=== PATIENT | female | born 1935 | race African-American/Black ===

== ENCOUNTER 2020-09-27 10:54 | Emergency (ER) | payer MEDICARE, OTHER ==
[2020-09-27 11:36] LABS: #Monocytes 1.1 10x3/uL (0.0-1.1); #Neutrophils 11.6 10x3/uL (1.5-8.4); %Basophils 0.1 % (0.0-2.0); %Lymphocytes 5.6 % (18.0-47.0); Hemoglobin 13.1 g/dL (12.0-15.5); Mean Corpuscular HGB CONC 31.2 g/dL (32.0-36.0); Mean Corpuscular Hemoglobin 23.4 pg (27.0-33.0); Mean Corpuscular Volume 74.9 fl (81.6-98.3); Mean Platelet Volume 9.8 fl (7.4-10.4); Platelet Count 295 10x3/uL (150-450); RBC Distribution Width 15.9 % (11.5-14.5); Red Blood Cell (RBC) Count 5.61 10x6/uL (3.90-5.03); White Blood Cell (WBC) Count 13.4 10x3/uL (3.5-10.5)
[2020-09-27 12:07] LABS: ALT (SGPT) 13 U/L (8-55); Albumin 3.8 g/dL (3.4-4.8); Alkaline Phosphatase 80 U/L (40-110); Anion Gap 24 mmol/L (10-20); BUN (Urea Nitrogen) 81 mg/dL (9.8-20.1); Bilirubin, Total 0.6 mg/dL (0.2-1.2); Calc. Creatinine Clearance 0 mL/min (70-130); Calcium 9.2 mg/dL (7.8-10.44); Carbon Dioxide 13 mmol/L (23-31); Chloride 104 mmol/L (98-107); Globulin 3.1 g/dL (2.4-3.5); Glucose 131 mg/dL (83-110); Lipase 16 U/L (8-78); Potassium 4.4 mmol/L (3.5-5.1); Protein, Total 6.9 g/dL (5.8-8.1); Sodium 137 mmol/L (136-145)
[2020-09-27] MEDS ORDERED: Piperacillin/Tazobactam 4.5 GM VIAL ONE (12:07)
[2020-09-27 12:18] LABS: AST (SGOT) 26 U/L (5-34)
[2020-09-27 12:26] LABS: CKMB 5.7 ng/mL (0-6.6)
[2020-09-27 14:21] LABS: Bilirubin 3+ (Negative); Blood, Urine 10 (Negative); Clarity Clear (Clear); Glucose, Urine (Dipstick) Normal (Negative); Ketone, Urine 15 mg/dL (Negative); Leukocyte 25 (Negative); Nitrite Negative (Negative); Protein, Urine (Dipstick) 30 mg/dl (Neg-Trace)
[2020-09-27 14:30] LABS: Bacteria/HPF None Seen HPF (None Seen); RBC/HPF None Seen HPF (0-3); Squamous Epithelial 0-3 HPF (0-3); WBC/HPF 0-3 HPF (0-3)
[2020-09-27 14:39] LABS: SARS-CoV-2 NAA Rapid Test Not Detected (NotDetected)
[2020-09-27] MEDS ORDERED: Ondansetron PF 4 MG/2 ML Vial ONE (18:31)
[2020-09-27] MEDS ORDERED: Morphine 4 MG/ML VIAL ONE ×2 (18:31→19:14)
[2020-09-27] MEDS ORDERED: Lorazepam 2 MG/ML VIAL ONE (19:14)
== END 2020-09-27 20:45 | disposition home or self-care (01) ==
LOC: CSHERS 10:54
DX: K63.1 Perforation of intestine (nontraumatic) (principal); I48.91 Unspecified atrial fibrillation; I10 Essential (primary) hypertension; Z79.899 Other long term (current) drug therapy; Z20.822 Contact with and (suspected) exposure to COVID-19
CPT/HCPCS: 51702; 71045; 74176; 80053; 82553; 83605; 83690; 84484; 85025; 87040; 87076; 87086; 87149 ×2; 93005; 96365; 96375; 96376; 99285; U0002; 81003; 81015; J2060; J2270; J2405; J2543